=== PATIENT | male | born 1995 | race Caucasian/White ===

== ENCOUNTER 2021-02-20 13:42 | Emergency (ER) | payer BC ==
[2021-02-20] MEDS ORDERED: Ketorolac 60 MG/2 ML SDV IM ONE (14:07)
--- NOTE | 2021-02-20 14:15 | EDM.PDOC ---
ED HPI GENERAL MEDICAL PROBLEM - General Chief Complaint: Back Pain or Injury Stated Complaint: BACK PAIN Time Seen by Provider: 02/20/21 13:52 Source of Information: Reports: Patient History Limitations: Reports: No Limitations - History of Present Illness INITIAL COMMENTS - FREE TEXT/NARRATIVE: 25-year-old male presents the emergency department today with complaints of right upper back pain and right lateral and anterior rib pain. Patient states that he woke yesterday morning and had pain in his scapular area. He states that the pain has progressed to right lateral rib pain and right anterior chest pain. States he took 1 Aleve last night and this did not seem to help. Did not have any history of injury to his back or chest. States he has not been doing any heavy lifting over the course the past few days. Denies any recent fever, chills, nausea, vomiting or diarrhea. He denies any cough or shortness of breath. States that the pain is worse with movement and taking a deep breath. He does not have a primary care provider and states he does not take any prescription medications. Denies any history of smoking, vaping or street drug use. Back Pain Score (Numeric/FACES): 7 - Related Data Allergies Allergy/AdvReac Type Severity Reaction Status Date / Time Sulfa (Sulfonamide Allergy Cannot Verified 02/20/21 13:56 Antibiotics) Remember Home Meds: Home Meds . [No Known Home Meds] 02/20/21 [History] Past Medical History Neurological History: Reports: Other (See Below) Other Neuro History: head injury March 2020 - Past Surgical History HEENT Surgical History: Reports: Adenoidectomy, Tonsillectomy Social & Family History - Tobacco Use Tobacco Use Status *Q: Never Tobacco User - Caffeine Use Caffeine Use: Reports: Energy Drinks - Recreational Drug Use Recreational Drug Use: No ED ROS GENERAL - Review of Systems Review Of Systems: Comprehensive ROS is negative, except as noted in HPI. ED EXAM, GENERAL - Physical Exam Exam: See Below Exam Limited By: No Limitations General Appearance: Alert, WD/WN, No Apparent Distress Ears: Normal External Exam, Hearing Grossly Normal Nose: Normal Inspection Throat/Mouth: Normal Inspection, Normal Lips, Normal Voice, No Airway Compromise Head: Atraumatic, Normocephalic Neck: Normal Inspection, Supple Respiratory/Chest: No Respiratory Distress, Lungs Clear, Normal Breath Sounds, No Accessory Muscle Use. No: Chest Non-Tender (Right chest wall tender with palpation) Cardiovascular: Normal Peripheral Pulses, Regular Rate, Rhythm, No Edema, No Murmur Peripheral Pulses: 2+: Radial (L), Radial (R) GI/Abdominal: Normal Bowel Sounds, Soft, Non-Tender, No Distention (Male) Exam: Deferred Rectal (Males) Exam: Deferred Back Exam: Normal Inspection Extremities: Normal Inspection, Normal Range of Motion, Non-Tender, No Pedal Edema, Normal Capillary Refill Neurological: Alert, Oriented, Normal Cognition Psychiatric: Normal Affect, Normal Mood Skin Exam: Warm, Dry, Intact, Normal Color, No Rash Lymphatic: No Adenopathy Course - Vital Signs Text/Narrative:: Patient presents with right scapular pain and right lateral rib pain and anterior chest wall pain. Upon assessment patient does have paraspinal tenderness noted to the right cervical area. He states chest wall pain is worsened with deep breathing and palpation. I have ordered a chest x-ray and for the patient received 60 mg of Toradol IM. Last Recorded V/S: Last Vital Signs Temp 97.4 F 02/20/21 13:52 Pulse 72 02/20/21 13:52 Resp 14 02/20/21 13:52 BP 129/95 H 02/20/21 13:52 Pulse Ox 96 02/20/21 13:52 - Orders/Labs/Meds Orders: Active Orders 24 hr Category Date Time Status Chest 2V [CR] Stat Exams 02/20/21 14:07 Taken Meds: Medications Discontinued Medications Generic Name Dose Route Start Last Admin Trade Name Freq PRN Reason Stop Dose Admin Ketorolac Tromethamine 60 mg 02/20/21 14:07 02/20/21 14:16 Ketorolac 60 Mg/2 Ml Sdv IM 02/20/21 14:08 60 mg ONETIME ONE Administration - Re-Assessments/Exams Free Text/Narrative Re-Assessment/Exam: 02/20/21 15:36 Nothing acute is appreciated on PA and lateral chest x-ray. Patient states he is feeling better after receiving IM Toradol. He will be discharged to home. Recommend that he take ibuprofen every 6 hours for the next 48 hours and use ice or heat for comfort. Departure - Departure Time of Disposition: 15:36 Disposition: Home, Self-Care 01 Condition: Good Clinical Impression: Atypical chest pain, Pain of right scapula - Discharge Information Instructions: Acute Back Pain, Adult Referrals: PCP,None [Primary Care Provider] - Forms: ED Department Discharge, ED Return to Work/School Form Additional Instructions: You were seen in the emergency department today with back pain and right-sided chest wall pain. Chest x-ray was completed and nothing acute was seen. You are also given a shot of pain medication this did seem to help. Pain is likely due to muscular type of pain. Recommend that you take ibuprofen 600 mg every 6 hours for the next 48 hours. If the pain is not resolved in about next week, follow-up with your primary care provider. May use ice or heat for comfort. Should your condition worsen or change, do not hesitate returning to the emergency department. Sepsis Event Note (ED) - Evaluation Sepsis Screening Result: No Definite Risk - Focused Exam Vital Signs: Vital Signs Temp Pulse Resp BP Pulse Ox 02/20/21 13:52 97.4 F 72 14 129/95 H 96 - My Orders Last 24 Hours: My Active Orders 02/20/21 14:07 Chest 2V [CR] Stat - Assessment/Plan Last 24 Hours: My Active Orders 02/20/21 14:07 Chest 2V [CR] Stat
--- NOTE | 2021-02-21 11:57 | CR ---
Chest: 2 views of the chest were obtained. Comparison: No prior chest imaging is available. Heart size and mediastinum are normal. Lungs are clear with no acute parenchymal change. Very slight scoliosis is noted within the spine. No acute osseous abnormality is appreciated. Impression: 1. Slight scoliosis. 2. Nothing acute is seen on 2 view chest x-ray. Diagnostic code #2
== END 2021-02-20 16:58 | disposition home or self-care (01) ==
LOC: JD.ED 13:42
DX: R07.89 Other chest pain (principal); M25.511 Pain in right shoulder; R07.81 Pleurodynia; M54.6 Pain in thoracic spine; Z88.2 Allergy status to sulfonamides
CPT/HCPCS: 71046; 96372; 99283; J1885